=== PATIENT | male | born 1990 | race Caucasian/White ===

== ENCOUNTER → 2019-03-13 | Day surgery (SDC) | payer OTHER ==
[~2019-03-13] MED LIST: ATORVASTATIN CA10 MG PO; DICYCLOMINE HCL10 MG PO; FENTANYL CITRATE/PF 100MCG/2 ML INJ ONE; FERROUS SULFAT325 MG PO; HYOSCYAMINE 0.125 MG TAB ONE; LEVOXYL125 MCG PO; MIDAZOLAM HCL 2 MG/2 ML VIAL ONE; PROPOFOL IV EMULSION 10 MG/ML 20 ML VIAL ONE; PROPOFOL IV EMULSION 10 MG/ML 50 ML VIAL ONE; VITAMIN D33000 UNIT PO; Z.0.KEPPRA1000 MG PO; Z.0.TOPAMAX50 MG PO
--- OUTSIDE RECORDS SUMMARY | 2019-03-13 05:49 | XMS REPORT | Summary of Care ---
Author Organization Unknown Address Unknown Phone Unavailable Encounter HQ Encntr_murphy([facility]) [id number] Date(s): 03/11/14 - 03/11/14 [facility] Outpatient Imaging - [address] [address] [place] Discharge Disposition: Home Physician Attending: SaturdayMoriah MD Reason for Visit 340 - MULTIPLE SCLERO Problem List No data available for this section Allergies, Adverse Reactions, Alerts Substance Reaction Severity Status NKDA Active Medications No data available for this section Medications Administered During Your Visit No data available for this section Immunizations No data available for this section
--- OUTSIDE RECORDS SUMMARY | 2019-03-13 05:49 | XMS REPORT | Continuity of Care Document ---
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 06/27/2017 [facility] [place] CONVULSIONS Active 04/09/2012 [facility] SLEEP EVAL Active 07/08/2000 [facility] Medications No Data Provided for This Section Allergies, Adverse Reactions, Alerts No Known Medication Allergies Immunizations No Data Provided for This Section Results No Data Provided for This Section Pathology Reports No Data Provided for This Section Diagnostic Reports Report Value Date Source Brain w/wo contrast MRI Brain w/wo contrast MRI 11/08/2017 8:55 AM CDT Clinical Indication: 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 20 mL of intravenous gadolinium was given. FINDINGS: BRAIN: No restricted diffusion is identified. The approximately 5 minimal foci of bilateral frontal white matter increased FLAIR signal are stable, each measuring approximately 2 or 3 mm. There is no extra-axial fluid collection or intraparenchymal hemorrhage. No abnormal enhancement is seen. The brain volume is normal. The brainstem is unremarkable. 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 No significant mass effect on the cerebral aqueduct. The bilateral mesial temporal lobes are normal in signal and volume. CEREBELLOPONTINE REGIONS, SELLA, AND SKULL: The cerebellopontine angles appear unremarkable. No skull abnormality is seen. The pituitary gland appears unremarkable. VENTRICLES: The ventricles and sulci are normal in size and configuration for age. VISUALIZED VESSELS: Major intracranial flow voids are preserved. ORBITS, VISUALIZED PARANASAL SINUSES/MASTOIDS/CERVICAL SPINE: Mild mucosal thickening is seen within the paranasal sinuses. The mastoid air cells are clear. No orbital pathology is seen. IMPRESSION: 1. No intracranial hemorrhage, mass, or acute infarct. 2. Stable minimal bilateral frontal white matter foci of increased signal, may represent vasculitis or minimal demyelination. 3. 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 No hydrocephalus. 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 FINDINGS: BRAIN PARENCHYMA: There is no hemorrhage, extra axial collection, cerebral edema, or mass effect. 7 mm, simple nonenhancing pineal region cyst is stable. The lesion contacts the tectum. Diffusion sequences are normal. Brain volume is age-appropriate. Minimal, nodular white matter signal abnormalities are stable.The cerebellar tonsils are above foramen magnum. The pituitary gland is age-appropriate. There is no abnormal enhancement. CEREBELLOPONTINE REGIONS AND SKULL BASE: The cerebellopontine angles appear unremarkable. No skull base abnormality is seen. VENTRICLES/SULCI/CISTERNS: The ventricles are normal in size and configuration. The basal cisterns are patent. VISUALIZED VESSELS: Major intracranial flow voids are preserved. ORBITS, VISUALIZED PARANASAL SINUSES AND MASTOIDS: Paranasal sinuses are clear. The mastoid air cells are clear. No orbital pathology is seen. IMPRESSION: 1. Unchanged, 7 mm pineal region simple cystic lesion contacting the tectum without mass effect or aqueductal narrowing 2. Minimal, nonspecific white matter signal abnormalities are stable. 06/27/2017 FREDERICK Lacey Brain w/wo contrast MRI MRI BRAIN WITHOUT AND WITH CONTRAST COMPARISON: 03/11/2014 MRI exam. COMMENTS: Compared to 03/11/2014, the right frontal periventricular white matter increased FLAIR signal is stable. The additional minimal bilateral pericallosal white matter lesions also stable. The brainstem and brachii pontis appear unremarkable. No acute intracranial hemorrhage, acute ischemia, or mass identified. No diffusion restriction is identified. The pineal cyst is stable, measuring approximately 8.3 mm in AP dimension. No aqueductal stenosis is seen. The bilateral hippocampi are symmetric in volume and signal. No evidence of cortical dysplasia is seen. No pathologic enhancement is demonstrated. IMPRESSION: 1. Stable bilateral deep white matter increased signal foci since 03/11/2014 as above. 2. No acute intracranial hemorrhage, acute ischemia, or solid mass identified. 3. Stable pineal cyst. 12/06/2014 [facility] cervical w/wo contrast MRI MRI CERVICAL SPINE WITHOUT AND WITH CONTRAST TECHNIQUE: Multiplanar multisequence imaging of the cervical spine was performed without and with administration of intravenous gadolinium. COMPARISON: No prior exam. FINDINGS: Mild cervical kyphosis is seen, likely due to patient positioning versus muscle spasm. Several minimal C7 and T1 level foci of spinal cord increased T2 weighted signal are identified, measuring up to 2.3 mm, without corresponding abnormal enhancement or mass effect. The remainder of the cervical cord appears grossly unremarkable. C2-C3: Unremarkable. C3-C4: Small right greater than left bilateral foraminal disc osteophyte complexes are seen, with mild right foraminal stenosis. No central canal stenosis is identified. C4-C5: Small right foraminal disc osteophyte complex is identified. No central canal or foraminal stenosis. C5-C6: Small right foraminal disc osteophyte complex is seen with mild right foraminal stenosis. Minimal disc bulge is seen with minimal central canal stenosis. No mass effect on the thoracic cord is identified. C6-C7: Unremarkable. C7-T1: Unremarkable. IMPRESSION: 1. C7 and T1 level several minimal foci of intramedullary increased signal, and may represent demyelination plaques. No corresponding abnormal enhancement or mass effect. 2. Several levels of foraminal disc osteophyte complexes with minimal foraminal stenosis. [facility] [place] Brain w/wo contrast MRI ADDENDUM: Compared to the outside cranial MRI dated 06/05/2012, the bilateral pericallosal white matter lesions are less prominent. The right frontal periventricular increase signal lesion is stable. No new lesion is seen compared to 06/05/2012. MRI BRAIN WITHOUT AND WITH CONTRAST COMPARISON: No prior exam. COMMENTS: No acute intracranial hemorrhage, acute ischemia, or mass identified. No diffusion restriction is identified. Midline pineal cystic lesion is identified measuring 7.6 mm in the AP dimension and 7.1 mm transversely. No significant mass effect on the midbrain tectum is identified. The corpus callosum appears unremarkable. There are several T2 and FLAIR signal foci within the bilateral pericallosal white matter, measuring up to 3.8 mm. No corresponding diffusion restriction or enhancement is identified. There is also mild right frontal periventricular increased T2 weighted signal. The brainstem an brachii pontis appear unremarkable. No pathologic enhancement is demonstrated. The paranasal sinuses and mastoid air cells are well aerated. Midline nasopharyngeal adenoid lymphoid tissue hypertrophy is identified. IMPRESSION: 1. Several supratentorial deep white matter small foci of abnormal signal, and may represent demyelination plaques in this young patient. No abnormal enhancement is identified. 2. 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 No significant mass effect on midbrain identified. 03/11/2014 [facility] [place] Consultation Notes No Data Provided for This Section Discharge Summaries No Data Provided for This Section History and Physicals No Data Provided for This Section Vital Signs No Data Provided for This Section Encounters Location Location Details Encounter Type Encounter Number Reason For Visit Attending Provider ADM Date DC Date Status Source [facility] Outpatient Imaging - [place] [facility] [id number] Moriah Saturday03/11/2014 03/12/2014 [facility] [place] [facility] Outpatient Imaging - [place] [facility] [id number] [place] Saturday12/06/2014 12/07/2014 [facility] [place] [facility] Outpatient Imaging - [place] [facility] [id number] [place] Saturday06/27/2017 06/28/2017 [facility] [place] [facility] Outpatient Imaging - [place] Out[facility] Di[facility] [id number] Moriah Saturday11/08/2017 11/09/2017 [facility] [place] [facility] Outpatient [id number] CONVULSIONS LEONARDO HORN Active [facility] Outpatient [id number] SLEEP EVAL MATTHEW CARR Active [facility] Procedures No Data Provided for This Section Assessment and Plan No Data Provided for This Section Plan of Care No Data Provided for This Section Social History Social History Date Source No data available for this section 11/09/2017 [facility] [place] Family History No Data Provided for This Section Advance Directives No Data Provided for This Section Functional Status No Data Provided for This Section
--- OUTSIDE RECORDS SUMMARY | 2019-03-13 05:49 | XMS REPORT | Summary of Care ---
Author Author [facility] [place] Organization [facility] [place] Address Unknown Phone Unavailable Encounter HQ Encntr_alias(FIN) [id number] Date(s): 11/08/17 - 11/08/17 [facility] Outpatient Imaging - [place] [address] [place] [address] [phone] Discharge Disposition: Home or Self Care Attending Physician: SaturdayMoriah MD Vital Signs No data available for this section Problem List No data available for this section Allergies, Adverse Reactions, Alerts Substance Reaction Severity Status NKDA Active Medications No data available for this section Results No data available for this section Immunizations No data available for this section Procedures No data available for this section Social History No data available for this section Assessment and Plan No data available for this section
--- OUTSIDE RECORDS SUMMARY | 2019-03-13 05:49 | XMS REPORT | Summary of Care ---
Author Author Abhi Miller, [facility] Address [facility] Phone Unavailable Care Team Providers Care [place] Measurer Name Role Phone CHELSEY MOSELEY N.P. Unavailable Unavailable RENAY Hughes, REYES Unavailable Unavailable JENNIFER DORANTES [place], BONNIE ATWOOD Unavailable Unavailable JENNIFER Hughes, BONNIE Unavailable Unavailable MIROSLAVA ROSENTHAL [place], KALPANA Rosas Unavailable Unavailable RENAY DORANTES, REYES Unavailable Unavailable Unavailable Unavailable Functional Status Name Dates Details Functional status health issues are not documented Status: Name Dates Details Cognitive status health issues are not documented Status: Problems Name Dates Details Convulsions (780.39, R56.9) Status: Active Anemia (285.9, D64.9) Status: Active Thyroiditis, 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, 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 Hypokalemia (276.8, E87.6) Status: Active History of hypercholesterolemia (V12.29, Z86.39) Status: Active Non-seasonal allergic rhinitis due to pollen (477.0, J30.1) Status: Active Mixed hyperlipidemia (272.2, E78.2) Status: Active Cough, persistent (786.2, R05) Status: Active Hypothyroidism due to acquired atrophy of thyroid (244.8, E03.4) Status: Active Impaired glucose tolerance test (790.22, R73.09) Status: Active Combined hyperlipidemia (272.2, E78.2) Status: Active Vitamin D insufficiency (268.9, E55.9) Status: Active Morbid obesity with BMI of 50.0-59.9, adult (278.01, E66.01) Status: Active History of Ingrowing toenail (703.0, L60.0) Status: Resolved Obstructive sleep apnea (327.23, G47.33) Status: Active Colitis, acute (558.9, K52.9) Status: Active Proctalgia (569.42, K62.89) Status: Active Multiple sclerosis (340, G35) Status: Active Mild intermittent asthma without complication (493.90, J45.20) Status: Active Demyelinating disorder (341.9, G37.9) Status: Active Medications Name Dates Details levETIRAcetam 1000 MG Oral Tablet taking [address] Saturday REYES NIÑO M.D. Active Topiramate 100 MG Oral Tablet 2 tabs BID * Refills: 0 Active Iron Supplement TABS * Refills: 0 Active Levoxyl 125 MCG Oral Tablet Take one (1) tablet(s) by mouth daily. * Quantity: 90 Refills: 0 REYES NIÑO M.D. * Start : 16-Aug-2015 Active Atorvastatin Calcium 20 MG Oral Tablet TAKE ONE (1) TABLET(S) BY MOUTH EVERY NIGHT * Quantity: 90 Refills: 0 REYES NIÑO M.D. * Start : 16-Aug-2015 Active Vitamin D3 2000 UNIT Oral Capsule 3 a day; Start 02-24-16 * Refills: 0 REYES NIÑO M.D. * Start : 16-Aug-2015 Active Ibuprofen 200 MG Oral Capsule 4 tabs po THREE TIMES A DAY. con't dosing for 3-5 days beyond pain relief or 2-3 weeks max * Refills: 0 CHELSEY MOSELEY N.P. * Start : 03-Jan-2018 Active Montelukast Sodium 10 MG Oral Tablet TAKE 1 TABLET DAILY DIRECTED. * Quantity: 1 Refills: 3 CHELSEY MOSELEY N.P. * Start : 27-Nov-2018 Active 90 Tablet Bottle Fluticasone-Salmeterol 250-50 MCG/DOSE Inhalation Aerosol Powder Breath Activate d INHALE 1 PUFF TWICE DAILY...BRKFST & Supper. Rinse mouith after use. * Quantity: 1 Refills: 5 CHELSEY MOSELEY N.P. * Start : 27-Nov-2018 Active 60 Each Pack Ventolin HFA 108 (90 Base) MCG/ACT Inhalation Aerosol Solution INHALE 1 TO 2 PUFFS EVERY 4 TO 6 HOURS NEEDED. * Quantity: 1 Refills: 5 CHELSEY MOSELEY N.P. * Start : 27-Nov-2018 Active 18 GM Inhaler Dicyclomine HCl - 10 MG Oral Capsule TAKE ONE TO TWO CAPSULES BY MOUTH THREE TIMES A DAY BEFORE MEALS NEEDED FOR A BDOMINAL CRAMPING * Quantity: 120 Refills: 4 CHELSEY MOSELEY N.P. * Start : 30-Jan-2019 Active predniSONE 20 MG Oral Tablet 2 TABS PO QAM W/FOOD FOR 5 DAYS, then 1 TAB PO QAM for the next 5 days. Start in the AM. * Quantity: 15 Refills: 0 MOSELEY N.P., CHELSEY * Start : 30-Jan-2019 Active Proctofoam HC 1-1 % Rectal Foam TAKE RECTALLY TWICE DAILY As needed for rectal pain. * Quantity: 2 Refills: 5 MOSELEY N.P., CHELSEY * Start : 30-Jan-2019 Active 10 GM Can Metamucil Smooth Texture 28.3 % Oral Powder TWICE DAILY * Refills: 0 MOSELEY N.P., CHELSEY * Start : 30-Jan-2019 Active 861 GM Bottle Allergies and Adverse Reactions Name Dates Details No Known Drug Allergies (Allergy) Status: Active Past Medical History Name Dates Details History of Abnormal glucose (790.29, R73.09) Status: Resolved History of Acute asthmatic bronchitis (493.90, J45.909) Status: Resolved History of Acute bacterial pharyngitis (462, J02.8) Status: Resolved History of acute bronchitis (V12.69, Z87.09) Status: Resolved History of Acute maxillary sinusitis (461.0, J01.00) Status: Resolved History of Acute URI (465.9, J06.9) Status: Resolved History of Convulsions (780.39, R56.9) Status: Resolved History of Demyelinating disorder (341.9, G37.9) Status: Resolved History of Encounter for PPD test (V74.1, Z11.1) Status: Resolved History of Fever and chills (780.60, R50.9) Status: Resolved 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 History of Influenza A (487.1, J10.1) Status: Resolved History of Ingrowing toenail (703.0, L60.0) Status: Resolved History of Multiple sclerosis (340, G35) Status: Resolved History of Obstructive sleep apnea (327.23, G47.33) Status: Resolved History of pharyngitis (V12.69, Z87.09) Status: Resolved Procedures Procedure Dates Details History of Appendectomy Completed History of Tonsillectomy Completed History of Hernia Repair Completed History of Knee Surgery Left Completed History of Oral Surgery Completed Immunization Name Dates Details Fluzone INJ Lot #: [id number] on: 27-May-2013 PPD Lot #: [id number] on: 06-Jan-2014 Family History Name Dates Details Family history of Hypertension (V17.49) Status: Active Family history of Rheumatoid Arthritis Status: Active Family history of Layla thyroiditis (V18.19, Z83.49) Status: Active Name Dates Details Family history of Hypertension (V17.49) Status: Active Social History Name Dates Details - Status: Name Dates Details Never smoker Former smoker Vital Signs Date Test Result Details No Known Vitals to report Results Date Description Value Details Results not documented Plan of Care Name Dates Details Planned Observations Planned Goals not documented Planned Encounters Appointment; REYES NIÑO M.D. On: 16-Apr-2019 8:30 Interventions Provided Medication Changes* Atorvastatin Calcium 20 MG Oral Tablet - Renew Instructions Name Dates Details Instructions not documented Encounters Appointment; KALPANA [address] Encounter Diagnosis: Problem not documented On: 13-Mar-2017 15:00 Appointment; REYES NIÑO M.D. Encounter Diagnosis: Problem not documented On: 08-May-2017 9:30 Appointment; KALPANA [address] Encounter Diagnosis: Problem not documented On: 23-May-2017 10:00 Appointment; KALPANA [address] Encounter Diagnosis: Problem not documented On: 24-Jun-2017 10:00 Appointment; CHELSEY MOSELEY NP Encounter Diagnosis: Problem not documented On: 28-Jun-2017 8:45 Appointment; KALPANA [address] Encounter Diagnosis: Problem not documented On: 21-Aug-2017 13:00 Appointment; REYES NIÑO M.D. Encounter Diagnosis: Problem not documented On: 21-Aug-2017 14:45 Appointment; KALPANA [address] Encounter Diagnosis: Problem not documented On: 19-Sep-2017 15:00 Appointment; GLADIS ARANA Encounter Diagnosis: Problem not documented On: 12-Nov-2017 9:30 Appointment; GLADIS ARANA Encounter Diagnosis: Problem not documented On: 10-Dec-2017 11:00 Appointment; REYES NIÑO M.D. Encounter Diagnosis: Problem not documented On: 11-Dec-2017 8:30 Appointment; KALPANA [address] Encounter Diagnosis: Problem not documented On: 19-Dec-2017 15:00 Appointment; CHELSEY MOSELEY NP Encounter Diagnosis: Problem not documented On: 03-Jan-2018 14:00 Appointment; REYES NIÑO M.D. Encounter Diagnosis: Problem not documented On: 14-Apr-2018 9:00 Appointment; REYES NIÑO M.D. Encounter Diagnosis: Problem not documented On: 15-Aug-2018 8:00 Appointment; CHELSEY MOSELEY NP Encounter Diagnosis: Problem not documented On: 27-Nov-2018 14:30 Appointment; REYES NIÑO M.D. Encounter Diagnosis: Problem not documented On: 15-Dec-2018 8:30 Appointment; CHELSEY MOSELEY NP Encounter Diagnosis: Problem not documented On: 30-Jan-2019 7:30
--- OUTSIDE RECORDS SUMMARY | 2019-03-13 05:49 | XMS REPORT | Summary of Care ---
Author Author [facility] [place] Organization [facility] [place] Address Unknown Phone Unavailable Encounter HQ Encntr_alias(FIN) [id number] Date(s): 06/27/17 - 06/27/17 [facility] Outpatient Imaging - [place] [address] [place] [phone] Discharge Disposition: Home or Self Care Attending [...]
--- OUTSIDE RECORDS SUMMARY | 2019-03-13 05:49 | XMS REPORT | Summary of Care ---
Author Organization Unknown Address Unknown Phone Unavailable Encounter HQ Encntr_alias([facility]) [id number] Date(s): 12/06/14 - 12/06/14 [facility] Outpatient Imaging - [address] [address] [phone] Discharge Disposition: Home Physician Attending: SaturdayMoriah MD Vital Signs No data available [...]
--- NOTE | 2019-03-13 07:10 | NUR ---
SPIRITUAL CARE - Pre-Surgery Assessment: Pt in bed. Pt's parents at bedside. Pt reported supportive attention from family and friends. Intervention: I provided pastoral presence, hospitality, and sympathetic listening. I acquainted pt with availability of volunteer services supervisor while hospitalized. Outcome: Pt expressed appreciation for visit. No need for follow up indicated at this time. JAMAR [facility] Spiritual Care Department O: [phone] Pager: [phone] ([phone] number calling from)
[2019-03-13 10:45] LABS: WBC,FECAL (FECAL LACTOFERRIN) NEGATIVE (NEGATIVE)
[2019-03-13 11:10] VITALS: BP 133/71
--- NOTE | 2019-03-13 14:17 | Operative Report ---
DATE OF PROCEDURE: 03/13/2019 SURGEON: Sajan Johansen MD PROCEDURES: EGD with biopsies and a colonoscopy with biopsies. INDICATIONS FOR EGD: Dyspepsia. INDICATIONS FOR COLONOSCOPY: Chronic diarrhea, fecal urgency, bright red blood per rectum. MEDICATIONS: The patient was done under MAC, please see anesthesiologist's note. PROCEDURE IN DETAIL: With the patient in left lateral decubitus position, a flexible fiberoptic Olympus gastroscope was introduced into the esophagus under direct visualization without any difficulty. There was some patchy intense erythema noted in distal esophagus. The scope was then advanced with ease into the stomach and the mucosa overlying the antrum and the body revealed some patchy intense erythema and low-grade to moderate edema, biopsies were obtained. The pylorus was of normal contour and shape, it was intubated with ease and the scope was advanced all the way to the second portion of the duodenum. Biopsies were obtained from the second portion and duodenal bulb to rule out sprue. The scope was then withdrawn back into the stomach and retroflexed and mucosa overlying the fundus and the cardia appeared to be within normal limits. The scope was then straightened out and it was subsequently withdrawn. Grade 1 esophageal varices versus prominent esophageal veins were noted. The patient tolerated the procedure well. IMPRESSION: 1. Distal esophagitis. 2. Prominent esophageal veins versus grade 1 esophageal varices. 3. Gastritis, biopsied, biopsies sent to stain for Helicobacter pylori. 4. Rule out sprue. PLAN: Follow up histology. Initiate Protonix 40 mg one p.o. q.a.m. before meals. Check ultrasound of the liver and hepatic panel. The patient was then turned around and after adequate lubrication of the anal canal, a flexible fiberoptic Olympus colonoscope was inserted into the rectum with ease and advanced all the way to the cecum. Mucosa overlying the cecum appeared to be within normal limits. The ileocecal valve was intubated and the scope was advanced into the terminal ileum. Biopsies were obtained. The scope was then withdrawn back into the colon. It was then withdrawn slowly and some prominent nodularity was noted in the proximal ascending colon and biopsies were obtained. The ascending and the transverse grossly appeared to be within normal limits. There was some patchy areas of erythema noted in distal transverse, descending and sigmoid, random biopsies were obtained. The mucosa overlying the rectum revealed some diffuse erythema and moderate edema, and biopsies were obtained. The scope was then retroflexed into the distal rectum and moderate-sized internal hemorrhoids were noted, none of which was actively bleeding. The scope was then straightened out and it was subsequently withdrawn after securing an adequate stool specimen that was sent for the appropriate stool studies. The patient tolerated the procedure well. IMPRESSION: 1. Mild patchy colitis, left colon. 2. Proctitis, biopsied. 3. Internal hemorrhoids, none actively bleeding. PLAN: Follow up histology. Follow up stool studies. Initiate Bentyl 20 mg one p.o. t.i.d. Visbiome 1 p.o. b.i.d. Sajan Johansen MD [facility] [place] /[id number] cc: Ravinder Vigil
[2019-03-13 14:46] LABS: C DIFFICILE TOXIN A&B AMP PROB NEGATIVE (NEGATIVE)
== END | disposition home or self-care (01) ==
LOC: OR 05:43
PROVIDERS: ATTEND Internal Medicine Gastroenterology
DX: K29.50 Unspecified chronic gastritis without bleeding (principal); R19.7 Diarrhea, unspecified; E66.01 Morbid (severe) obesity due to excess calories; G40.911 Epilepsy, unspecified, intractable, with status epilepticus; G47.33 Obstructive sleep apnea (adult) (pediatric); Z68.43 Body mass index [BMI] 50.0-59.9, adult; R03.0 Elevated blood-pressure reading, without diagnosis of hypertension; K20.9 Esophagitis, unspecified; K51.50 Left sided colitis without complications; K62.89 Other specified diseases of anus and rectum; K64.8 Other hemorrhoids; I85.00 Esophageal varices without bleeding
CPT/HCPCS: 43239; 45380; 83630; 83993; 87045; 87177; 87328; 87493; J2250; J2704 ×2; J3010; 45378

== ENCOUNTER → 2019-04-10 | Outpatient (CLI) | payer OTHER ==
[~2019-04-10] MED LIST changes: -FENTANYL CITRATE/PF 100MCG/2 ML INJ ONE; -HYOSCYAMINE 0.125 MG TAB ONE; -MIDAZOLAM HCL 2 MG/2 ML VIAL ONE; -PROPOFOL IV EMULSION 10 MG/ML 20 ML VIAL ONE; -PROPOFOL IV EMULSION 10 MG/ML 50 ML VIAL ONE
--- NOTE | 2019-04-10 10:02 | Diagnostic Imaging Report ---
EXAM: Right upper quadrant abdominal ultrasound INDICATION: Right upper quadrant pain COMPARISON: None. TECHNIQUE: Transverse and longitudinal images of the right upper quadrant abdomen were obtained FINDINGS: Liver: Size: 15.6 cm in the right midclavicular line Appearance: Increased echogenicity, smooth contour Mass: No focal masses Gallbladder: Small amount of sludge in the gallbladder. No gallbladder distension, pericholecystic fluid, wall thickening, stone, or reported sonographic Vigil's sign. Gallbladder wall measures 2 mm. Bile Ducts: Intrahepatic Ducts: No dilatation Extrahepatic Ducts: Common bile duct measures 3 mm, no dilatation Pancreas: Visualized portions of the pancreatic head, neck and proximal body are normal. Kidney: The right kidney measures 13.2 cm without evidence of hydronephrosis or stone. Vessels: Aorta: Visualized portions are normal Inferior Vena Cava: Visualized portions are normal Main Portal Vein: 1.0 cm, normal size with hepatopetal flow. Free Fluid: No ascites or pleural effusion IMPRESSION: Small amount of sludge in the gallbladder. No sonographic evidence of cholelithiasis or cholecystitis. Hepatic steatosis. Signed by: Tennille Bey MD on 04/10/2019 9:59 AM
== END ==
LOC: US 08:18
PROVIDERS: ATTEND Internal Medicine Gastroenterology
DX: Z68.43 Body mass index [BMI] 50.0-59.9, adult (principal)
CPT/HCPCS: 76705

== ENCOUNTER → 2022-11-08 | Outpatient (CLI) | payer OTHER | LOC: DX 09:29 | PROVIDERS: ATTEND Internal Medicine Gastroenterology | DX: K58.9 Irritable bowel syndrome, unspecified (principal) | CPT/HCPCS: 74250 ==